=== PATIENT | female | born 1985 | race Caucasian/White ===

== ENCOUNTER 2017-07-12 07:10 | Day surgery (SDC) | payer BC ==
[~2017-07-12 07:10] MED LIST: Lactated Ringers 1,000 ML IV SCH; Sodium Chloride 0.9% 10 ML Syringe FLUSH PRN; Sodium Chloride 0.9% 2.5 ML Syringe FLUSH PRN; ceFAZolin 2 GM in Premix Bag 1 BAG IV ONE
[2017-07-12] MEDS ORDERED: Ondansetron 4 MG/2 ML SDV ONE (07:25)
[2017-07-12] MEDS ORDERED: Propofol 200 MG/20 ML SDV ONE (07:25)
[2017-07-12] MEDS ORDERED: diphenhydrAMINE 50 MG/ML SDV ONE (07:25)
[2017-07-12] MEDS ORDERED: Midazolam 1 MG/ML 2 ML SDV ONE (07:25)
[2017-07-12] MEDS ORDERED: Succinylcholine/Normal Saline 200 MG/10 ML Syringe ONE (07:25)
[2017-07-12] MEDS ORDERED: Dexamethasone 4 MG/ML 5 ML MDV ONE (07:25)
[2017-07-12] MEDS ORDERED: Rocuronium 10 MG/ML 10 ML Syringe ONE (07:25)
[2017-07-12] MEDS ORDERED: Fluorescein 5 ML Vial ONE (07:25)
[2017-07-12] MEDS ORDERED: fentaNYL 250 MCG/5 ML SDV ONE (07:26)
[2017-07-12] MEDS ORDERED: HYDROmorphone 2 MG/ML SDV ONE (07:26)
[2017-07-12] MEDS ORDERED: Furosemide 40 MG/4 ML VIAL ONE (07:28)
[2017-07-12] MEDS ORDERED: Scopolamine 1.5 MG Transdermal Patch TRDERM PRN (07:38)
--- NOTE | 2017-07-12 07:41 | PCM.PREANE ---
Preanesthetic Assessment - Anesthesia/Transfusion/Family Hx Anesthesia History: Prior Anesthesia Without Reaction Family History of Anesthesia Reaction: No Transfusion History: No Prior Transfusion(s) Intubation History: Unknown - Review of Systems General: No Symptoms Pulmonary: No Symptoms Cardiovascular: No Symptoms Gastrointestinal: No Symptoms Neurological: No Symptoms Other: Reports: None - Physical Assessment Height: 1.68 m Weight: 128.82 kg ASA Class: 2 Mental Status: Alert & Oriented x3 Airway Class: Mallampati = 2 Dentition: Reports: Normal Dentition, Broken Tooth/Teeth (root canal upper left tooth x1) Thyro-Mental Finger Breadths: 3 Mouth Opening Finger Breadths: 3 ROM/Head Extension: Full Lungs: Clear to Auscultation, Normal Respiratory Effort Cardiovascular: Regular Rate, Regular Rhythm - Allergies Allergies/Adverse Reactions: Allergies Allergy/AdvReac Type Severity Reaction Status Date / Time hydromorphone [From Dilaudid] Allergy headache/N& Verified 07/12/17 07:24 V morphine Allergy headache/N& Verified 07/12/17 07:24 V MSG Allergy Mild Headache Uncoded 07/12/17 07:25 - Blood Blood Available: No - Anesthesia Plan Pre-Op Medication Ordered: None - Acknowledgements Anesthesia Type Planned: General Anesthesia Pt an Appropriate Candidate for the Planned Anesthesia: Yes Alternatives and Risks of Anesthesia Discussed w Pt/Guardian: Yes Pt/Guardian Understands and Agrees with Anesthesia Plan: Yes PreAnesthesia Questionnaire HEENT History: Reports: None Cardiovascular History: Reports: None Respiratory History: Reports: None Gastrointestinal History: Reports: None Genitourinary History: Reports: None ANTHROPOMETRIST History: Reports: Musculoskeletal History: Reports: Fracture Other Musculoskeletal History: hx fx ankle and rt leg Neurological History: Reports: Headaches, Chronic Psychiatric History: Reports: None Endocrine/Metabolic History: Reports: Obesity/BMI 30+ (BMI 45.5) Hematologic History: Reports: None Immunologic History: Reports: None Oncologic (Cancer) History: Reports: None Dermatologic History: Reports: None - Past Surgical History Head Surgeries/Procedures: Reports: None HEENT Surgical History: Reports: Adenoidectomy, Tonsillectomy Cardiovascular Surgical History: Reports: None Respiratory Surgical History: Reports: None GI Surgical History: Reports: None Female Surgical History: Reports: Cervical Conization, Endometrial Ablation, Tubal Ligation Endocrine Surgical History: Reports: None Neurological Surgical History: Reports: None Musculoskeletal Surgical History: Reports: None Oncologic Surgical History: Reports: None Dermatological Surgical History: Reports: Skin Biopsy - SUBSTANCE USE Smoking Status *Q: Current Every Day Smoker (1/2 to 3/4 per day) Tobacco Use Within Last Twelve Months: Cigarettes Recreational Drug Use History: No - HOME MEDS Home Medications: Home Meds . [No Known Home Meds] 07/07/17 [History] - CURRENT (IN HOUSE) MEDS Current Meds: Current Medications Lactated Ringer's (Ringers, Lactated) 1,000 mls @ 125 mls/hr IV ASDIRECTED ROHITH Last Admin: 07/12/17 07:25 Dose: 125 mls/hr Sodium Chloride (Saline Flush) 10 ml FLUSH ASDIRECTED PRN PRN Reason: Keep Vein Open Sodium Chloride (Saline Flush) 2.5 ml FLUSH ASDIRECTED PRN PRN Reason: Keep Vein Open Discontinued Medications Dexamethasone (Dexamethasone) Confirm Administered Dose 20 mg .ROUTE .STK-MED ONE Stop: 07/12/17 07:26 Diphenhydramine HCl (Benadryl) Confirm Administered Dose 50 mg .ROUTE .STK-MED ONE Stop: 07/12/17 07:26 Fentanyl (Sublimaze) Confirm Administered Dose 250 mcg .ROUTE .STK-MED ONE Stop: 07/12/17 07:27 Fluorescein Sodium (Ak-Fluor) Confirm Administered Dose 5 ml .ROUTE .STK-MED ONE Stop: 07/12/17 07:26 Furosemide (Lasix) Confirm Administered Dose 40 mg .ROUTE .STK-MED ONE Stop: 07/12/17 07:29 Hydromorphone HCl (Dilaudid) Confirm Administered Dose 2 mg .ROUTE .STK-MED ONE Stop: 07/12/17 07:27 Cefazolin Sodium/Dextrose 2 gm (/ Premix) 50 mls @ 100 mls/hr IV ONETIME ONE Stop: 07/12/17 05:29 Midazolam HCl (Versed 1 Mg/Ml) Confirm Administered Dose 2 mg .ROUTE .STK-MED ONE Stop: 07/12/17 07:26 Ondansetron HCl (Zofran) Confirm Administered Dose 4 mg .ROUTE .STK-MED ONE Stop: 07/12/17 07:26 Propofol (Diprivan 20 Ml) Confirm Administered Dose 200 mg .ROUTE .STK-MED ONE Stop: 07/12/17 07:26 Rocuronium [place] (Zemuron) Confirm Administered Dose 100 mg .ROUTE .STK-MED ONE Stop: 07/12/17 07:26 Succinylcholine Chloride (Succinylcholine In Ns Pf) Confirm Administered Dose 200 mg .ROUTE .STK-MED ONE Stop: 07/12/17 07:26
[2017-07-12 08:12] LABS: CHLORIDE,CL 106 mmol/L (98-107); SODIUM,NA 139 mmol/L (136-145)
[2017-07-12] MEDS ORDERED: ceFAZolin/Dextrose,Iso-Osmotic 2 GM/50 ML Duplex Bag IV ONE (08:12)
[2017-07-12] MEDS ORDERED: Glycopyrrolate 0.2 MG/ML SDV ONE (08:43)
[2017-07-12] MEDS ORDERED: fentaNYL 100 MCG/2 ML SDV ONE (09:24)
[2017-07-12] MEDS ORDERED: Ketorolac 30 MG/ML SDV ONE (09:58)
[2017-07-12] MEDS ORDERED: Acetaminophen/oxyCODONE 325-5 MG Tab PO PRN (10:26)
[2017-07-12] MEDS ORDERED: Ondansetron 4 MG/2 ML SDV IVPUSH PRN (10:26)
[2017-07-12] MEDS ORDERED: Lactated Ringers 1,000 ML IV SCH (10:30)
[2017-07-12] MEDS: Ketorolac 30 MG/ML SDV IVPUSH SCH ×4 (10:30→21:55)
[2017-07-12] MEDS: fentaNYL 100 MCG/2 ML SDV IVPUSH PRN ×2 (10:39→10:45)
--- NOTE | 2017-07-12 10:42 | PCM.OPNOTE ---
- General Post-Op/Procedure Note Date of Surgery/Procedure: 07/12/17 Operative Procedure(s): Vagianal hysterectomy. Cystoscopy Findings: Mobile 10 weeks size uterus, scarred cervix (from previous cone), no adnexal masses. Pre Op Diagnosis: Menorrhagia Post-Op Diagnosis: Same Anesthesia Technique: General ET Tube Primary Surgeon: Delmy Cedeño Vocational Nursing Instructor: Maru Rodgers Pathology: Uterus, cervix and Filse chip Fluid Replacement, Intraop: 2,700 EBL in mLs: 500 Complications: None Condition: Good
--- NOTE | 2017-07-12 11:36 | PCM.POSTAN ---
POST ANESTHESIA ASSESSMENT - MENTAL STATUS Mental Status: Alert, Oriented - RESPIRATORY Respiratory Status: Respiratory Rate WNL, Airway Patent, O2 Saturation Stable - CARDIOVASCULAR CV Status: Pulse Rate WNL, Blood Pressure Stable - GASTROINTESTINAL GI Status: No Symptoms - PAIN Pain Score: 5 - POST OP HYDRATION Hydration Status: Adequate & Stable - OBSERVATIONS Free Text/Narrative:: no anesthesia problems
[2017-07-12] MEDS ORDERED: Acetaminophen/oxyCODONE 325-5 MG Tab ONE (11:37)
[2017-07-12] MEDS ORDERED: Meperidine PF 25 MG/ML Syringe IVPUSH PRN (14:03)
--- NOTE | 2017-07-12 15:36 | PCM48HPAN ---
Post Anesthesia Note - EVALUATION WITHIN 48HRS OF ANESTHETIC Vital Signs in Normal Range: Yes Patient Participated in Evaluation: Yes Respiratory Function Stable: Yes Airway Patent: Yes Cardiovascular Function Stable: Yes Hydration Status Stable: Yes Pain Control Satisfactory: Yes Nausea and Vomiting Control Satisfactory: Yes Mental Status Recovered: Yes Resp Rate: 18
--- NOTE | 2017-07-12 17:32 | PCM.SURGPN ---
- General Info POD#: 0 Functional Status: Reports: Pain Controlled, Tolerating Diet, Ambulating, Incentive Spirometry - Review of Systems General: Denies: Fever, Fatigue, Malaise, Chills HEENT: Denies: Headaches Pulmonary: Denies: Shortness of Breath, Pleuritic Chest Pain Cardiovascular: Denies: Chest Pain, Palpitations, Dyspnea on Exertion Gastrointestinal: Denies: Abdominal Pain - Patient Data Vitals - Most Recent: Last Vital Signs Temp 36.2 C 07/12/17 16:00 Pulse 62 07/12/17 16:00 Resp 16 07/12/17 16:00 BP 132/70 07/12/17 16:00 Pulse Ox 93 L 07/12/17 16:00 Weight - Most Recent: 284 lb I&O - Last 24 Hours: Intake & Output 07/12/17 07/12/17 07/12/17 06:59 14:59 22:59 Intake Total 5600 Output Total 400 Balance 5200 Lab Results Last 24 Hrs: Laboratory Results - last 24 hr 07/12/17 07/12/17 07/12/17 Range/Units 07:30 07:30 07:30 WBC 10.71 (4.0-11.0) K/uL RBC 5.40 (4.30-5.90) M/uL Hgb 16.2 H (12.0-16.0) g/dL Hct 48.2 H (36.0-46.0) % MCV 89.3 (80.0-98.0) fL MCH 30.0 (27.0-32.0) pg MCHC 33.6 (31.0-37.0) g/dL RDW Std Deviation 42.7 (28.0-62.0) fl RDW Coeff of Domo 13 (11.0-15.0) % Plt Count 270 (150-400) K/uL MPV 11.00 (7.40-12.00) fL Nucleated RBC % 0.0 /100WBC Nucleated RBCs # 0 K/uL Sodium 139 (136-145) mmol/L Potassium 4.0 (3.5-5.1) mmol/L Chloride 106 (98-107) mmol/L Carbon Dioxide 25.7 (21.0-32.0) mmol/L BUN 12 (7.0-18.0) mg/dL Creatinine 0.7 (0.6-1.0) mg/dL Est Cr Clr Drug Dosing 108.05 mL/min Estimated GFR (MDRD) > 60.0 ml/min Glucose 94 (74-106) mg/dL Calcium 8.9 (8.5-10.1) mg/dL HCG, Qual NEGATIVE (NEG) Blood Type Antibody Screen 07/12/17 Range/Units 07:36 WBC (4.0-11.0) K/uL RBC (4.30-5.90) M/uL Hgb (12.0-16.0) g/dL Hct (36.0-46.0) % MCV (80.0-98.0) fL MCH (27.0-32.0) pg MCHC (31.0-37.0) g/dL RDW Std Deviation (28.0-62.0) fl RDW Coeff of Domo (11.0-15.0) % Plt Count (150-400) K/uL MPV (7.40-12.00) fL Nucleated RBC % /100WBC Nucleated RBCs # K/uL Sodium (136-145) mmol/L Potassium (3.5-5.1) mmol/L Chloride (98-107) mmol/L Carbon Dioxide (21.0-32.0) mmol/L BUN (7.0-18.0) mg/dL Creatinine (0.6-1.0) mg/dL Est Cr Clr Drug Dosing mL/min Estimated GFR (MDRD) ml/min Glucose (74-106) mg/dL Calcium (8.5-10.1) mg/dL HCG, Qual (NEG) Blood Type O POSITIVE Antibody Screen NEGATIVE Med Orders - Current: Current Medications Fentanyl (Sublimaze) 50 mcg IVPUSH SEECOMMENT PRN PRN Reason: Pain (moderate 4-6) Last Admin: 07/12/17 10:45 Dose: 50 mcg Lactated Ringer's (Ringers, Lactated) 1,000 mls @ 125 mls/hr IV ASDIRECTED [facility] Last Admin: 07/12/17 12:13 Dose: 125 mls/hr Ketorolac Tromethamine (Toradol) 30 mg IVPUSH Q6H [facility] Stop: 07/12/17 22:31 Last Admin: 07/12/17 16:24 Dose: 30 mg Meperidine HCl (Demerol) 25 mg IVPUSH Q4H PRN PRN Reason: severe pain Last Admin: 07/12/17 14:13 Dose: 25 mg Ondansetron HCl (Zofran) 4 mg IVPUSH Q6H PRN PRN Reason: Nausea/Vomiting Oxycodone/Acetaminophen (Percocet 325-5 Mg) 1 tab PO Q4H PRN PRN Reason: Pain (moderate 4-6) Oxycodone/Acetaminophen (Percocet 325-5 Mg) 2 tab PO Q4H PRN PRN Reason: Pain (moderate 4-6) Last Admin: 07/12/17 11:40 Dose: 2 tab Scopolamine (Transderm-Scop) 1.5 mg TRDERM Q72H PRN PRN Reason: Nausea Last Admin: 07/12/17 07:48 Dose: 1.5 mg Discontinued Medications Cefazolin Sodium/Dextrose (Ancef) Confirm Administered Dose 2 gm IV .STK-MED ONE Stop: 07/12/17 08:13 Dexamethasone (Dexamethasone) Confirm Administered Dose 20 mg .ROUTE .STK-MED ONE Stop: 07/12/17 07:26 Diphenhydramine HCl (Benadryl) Confirm Administered Dose 50 mg .ROUTE .STK-MED ONE Stop: 07/12/17 07:26 Fentanyl (Sublimaze) Confirm Administered Dose 250 mcg .ROUTE .STK-MED ONE Stop: 07/12/17 07:27 Fentanyl (Sublimaze) Confirm Administered Dose 100 mcg .ROUTE .STK-MED ONE Stop: 07/12/17 09:25 Fluorescein Sodium (Ak-Fluor) Confirm Administered Dose 5 ml .ROUTE .STK-MED ONE Stop: 07/12/17 07:26 Furosemide (Lasix) Confirm Administered Dose 40 mg .ROUTE .STK-MED ONE Stop: 07/12/17 07:29 Glycopyrrolate (Robinul) Confirm Administered Dose 0.2 mg .ROUTE .STK-MED ONE Stop: 07/12/17 08:44 Hydromorphone HCl (Dilaudid) Confirm Administered Dose 2 mg .ROUTE .STK-MED ONE Stop: 07/12/17 07:27 Cefazolin Sodium/Dextrose 2 gm (/ Premix) 50 mls @ 100 mls/hr IV ONETIME ONE Stop: 07/12/17 05:29 Last Admin: 07/12/17 07:00 Dose: Not Given Lactated Ringer's (Ringers, Lactated) 1,000 mls @ 125 mls/hr IV ASDIRECTED ROHITH Last Admin: 07/12/17 07:25 Dose: 125 mls/hr Ketorolac Tromethamine (Toradol) Confirm Administered Dose 30 mg .ROUTE .STK- MED ONE Stop: 07/12/17 09:59 Midazolam HCl (Versed 1 Mg/Ml) Confirm Administered Dose 2 mg .ROUTE .STK-MED ONE Stop: 07/12/17 07:26 Ondansetron HCl (Zofran) Confirm Administered Dose 4 mg .ROUTE .STK-MED ONE Stop: 07/12/17 07:26 Propofol (Diprivan 20 Ml) Confirm Administered Dose 200 mg .ROUTE .STK-MED ONE Stop: 07/12/17 07:26 Rocuronium Levasy (Zemuron) Confirm Administered Dose 100 mg .ROUTE .STK-MED ONE Stop: 07/12/17 07:26 Sodium Chloride (Saline Flush) 10 ml FLUSH ASDIRECTED PRN PRN Reason: Keep Vein Open Sodium Chloride (Saline Flush) 2.5 ml FLUSH ASDIRECTED PRN PRN Reason: Keep Vein Open Succinylcholine Chloride (Succinylcholine In Ns Pf) Confirm Administered Dose 200 mg .ROUTE .STK-MED ONE Stop: 07/12/17 07:26 - Exam Wound/Incisions: Other (Minimal vaginal bleeding) General: Alert, Oriented HEENT: Pupils Equal Lungs: Clear to Auscultation, Normal Respiratory Effort Cardiovascular: Regular Rate, Regular Rhythm GI/Abdominal Exam: Normal Bowel Sounds, Soft, Non-Tender Extremities: No Pedal Edema Skin: Warm Psy/Mental Status: Alert, Normal Affect, Normal Mood - Problem List & Annotations (1) Menorrhagia SNOMED Code(s): 627943396 Code(s): N92.0 - EXCESSIVE AND FREQUENT MENSTRUATION WITH REGULAR CYCLE Status: Acute Current Visit: Yes Qualifiers: Menorrahagia type: with regular cycle Qualified Code(s): N92.0 - Excessive and frequent menstruation with regular cycle (2) S/P vaginal hysterectomy SNOMED Code(s): 018769237 Code(s): Z90.710 - ACQUIRED ABSENCE OF BOTH CERVIX AND UTERUS Status: Acute Current Visit: Yes - Problem List Review Problem List Initiated/Reviewed/Updated: Yes - My Orders Last 24 Hours: Active Orders 24 hr Category Date Time Status Patient Status [ADT] Routine ADT 07/12/17 10:26 Active Antiembolic Devices [RC] PER UNIT ROUTINE Care 07/12/17 05:00 Inactive Antiembolic Devices [RC] PER UNIT ROUTINE Care 07/12/17 10:27 Active Notify Provider Intake and Out [RC] ASDIRECTED Care 07/12/17 10:26 Active Notify Provider Vital Signs [RC] ASDIRECTED Care 07/12/17 10:26 Active Oxygen Therapy [RC] ASDIRECTED Care 07/12/17 10:26 Active Procedure Prep Instructions [RC] PER UNIT ROUTINE Care 07/12/17 05:00 Inactive Procedure Site Prep Instruct [RC] PER UNIT ROUTINE Care 07/12/17 05:00 Inactive RT Incentive Spirometry [RC] Q2HWA Care 07/12/17 10:26 Active Up With Assistance [RC] PER UNIT ROUTINE Care 07/12/17 10:26 Active Up ad Elsa [RC] PER UNIT ROUTINE Care 07/12/17 10:26 Active Urinary Catheter Removal [RC] Per Unit Routine Care 07/12/17 10:26 Active Verify Patient Consent Obtain [RC] PER UNIT ROUTINE Care 07/12/17 05:00 Inactive Vital Signs [RC] PER UNIT ROUTINE Care 07/12/17 05:00 Inactive Vital Signs [RC] PER UNIT ROUTINE Care 07/12/17 10:26 Active Regular Diet [DIET] Diet 07/12/17 Lunch Active BASIC METABOLIC PANEL,BMP [CHEM] AM Lab 07/13/17 05:11 Ordered CBC WITH AUTO DIFF [HEME] AM Lab 07/13/17 05:11 Ordered Acetaminophen/oxyCODONE [Percocet 325-5 MG] Med 07/12/17 10:26 Active 1 tab PO Q4H PRN Acetaminophen/oxyCODONE [Percocet 325-5 MG] Med 07/12/17 10:26 Active 2 tab PO Q4H PRN Ketorolac [Toradol] Med 07/12/17 10:30 Active 30 mg IVPUSH Q6H Lactated Ringers [Ringers, Lactated] 1,000 ml Med 07/12/17 10:30 Active IV ASDIRECTED Meperidine [Demerol] Med 07/12/17 14:03 Active 25 mg IVPUSH Q4H PRN Ondansetron [Zofran] Med 07/12/17 10:26 Active 4 mg IVPUSH Q6H PRN Scopolamine [Transderm-Scop] Med 07/12/17 07:38 Active 1.5 mg TRDERM Q72H PRN fentaNYL [Sublimaze] Med 07/12/17 08:45 Active 50 mcg IVPUSH SEECOMMENT PRN Peripheral IV Discontinue [OM.PC] Routine Oth 07/12/17 10:26 Ordered Sequential Compression Device [OM.PC] Per Unit Routine Oth 07/12/17 10:26 Ordered Resuscitation Status Routine Resus Stat 07/12/17 10:26 Ordered Medication Orders Fentanyl (Sublimaze) 50 mcg IVPUSH SEECOMMENT PRN PRN Reason: Pain (moderate 4-6) Last Admin: 07/12/17 10:45 Dose: 50 mcg Admin: 07/12/17 10:39 Dose: 50 mcg Lactated Ringer's (Ringers, Lactated) 1,000 mls @ 125 mls/hr IV ASDIRECTED [facility] Last Admin: 07/12/17 12:13 Dose: 125 mls/hr Ketorolac Tromethamine (Toradol) 30 mg IVPUSH Q6H [facility] Stop: 07/12/17 22:31 Last Admin: 07/12/17 16:24 Dose: 30 mg Admin: 07/12/17 10:30 Dose: 30 mg Meperidine HCl (Demerol) 25 mg IVPUSH Q4H PRN PRN Reason: severe pain Last Admin: 07/12/17 14:13 Dose: 25 mg Ondansetron HCl (Zofran) 4 mg IVPUSH Q6H PRN PRN Reason: Nausea/Vomiting Oxycodone/Acetaminophen (Percocet 325-5 Mg) 1 tab PO Q4H PRN PRN Reason: Pain (moderate 4-6) Oxycodone/Acetaminophen (Percocet 325-5 Mg) 2 tab PO Q4H PRN PRN Reason: Pain (moderate 4-6) Last Admin: 07/12/17 11:40 Dose: 2 tab Scopolamine (Transderm-Scop) 1.5 mg TRDERM Q72H PRN PRN Reason: Nausea Last Admin: 07/12/17 07:48 Dose: 1.5 mg - Assessment Assessment (Free Text/Narrative):: POD#0, s/p Vaginal hysterectomy, stable and afebrile Minimal vaginal bleeding. Good urine output - Plan Plan (Free Text/Narrative):: Continue routine postop care. Continue to ambulate ad elsa Aim for discharge tomorrow.
[2017-07-12] MEDS: Acetaminophen/oxyCODONE 325-5 MG Tab PO PRN (18:53)
--- NOTE | 2017-07-12 20:34 | OR ---
SURGEON: Delmy Cedeño MD DATE OF PROCEDURE: 07/12/2017 PREOPERATIVE DIAGNOSIS: Menorrhagia. POSTOPERATIVE DIAGNOSIS: Menorrhagia. PROCEDURES: 1. Vaginal hysterectomy. 2. Cystoscopy. ASSISTANT SHIFT SUPERVISOR: Maru Rodgers M.D. ANESTHESIA: General endotracheal. IV FLUID: 2700 mL of crystalloid. ESTIMATED BLOOD LOSS: 500 mL. FINDINGS: Mobile 8 weeks size uterus, anteverted.The cervix was shortened and scarred from previous Cold knife cone procedure Normal tubes visualized bilaterally intraoperatively but the ovaries were not well visualized. No trauma to the bladder mucosa with bilateral patent ureters during the cystoscopy. COMPLICATIONS: None. DISPOSITION: Stable to the recovery room. BRIEF HISTORY: The patient is a 31-year-old, who presented with menorrhagia following a hydrothermal endometrial ablation, which was performed by her previous COURT ASSISTANT doctor. 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 She came in requesting that she would like to proceed with hysterectomy as a definitive management for her menorrhagia. She had completed her family and having had a bilateral tubal ligation, was adamant that she would like to proceed with hysterectomy. I had requested and reviewed all her past records from her prior COURT ASSISTANT doctor, and we had extensively discussed the risk of the major surgery, hysterectomy, and alternatives to the procedure. The patient opted to proceed and appropriate consent was obtained. DESCRIPTION OF THE PROCEDURE: The patient was taken to the operating room where induction of general anesthesia was performed without difficulty. After adequate level of general endotracheal anesthesia, she was placed in dorsal lithotomy position. The abdomen, perineum, and vagina were prepped in a normal sterile fashion for the surgery. A Hardin catheter was placed. SCDs were in place. She received 2 g of Ancef. Appropriate time-out was held. A weighted speculum was placed into the vagina posteriorly, but this was found not to be inadequate due to the depth of the vagina/pelvis. It was switched out to Soler Auvard speculum. Lateral wall retractors were used to retract the vagina anteriorly and laterally exposing the cervix. The cervix was grasped with a Ze tenaculum and was then circumscribed using electrocautery, and the bladder was then dissected off cervix anteriorly by both blunt and sharp dissection using the Metzenbaum scissors. The cervix was also dissected off posteriorly and the posterior cul-de-sac was entered sharply without difficulty and the speculum was placed into the peritoneum cavity. Anterior cul-de-sac was also entered sharply and a right angle retractor was placed into the peritoneal cavity retracting the bladder anteriorly and cephalad. At this point, a Kiley clamp was placed over the uterosacral ligaments on either side, these were then transected and suture ligated with Kiley suture of 2-0 Polysorb. The cardinal ligament complex was then crossclamped on both sides, transected and suture ligated in similar fashion with a 2-0 Polysorb suture. The uterine arteries and the broad ligament were then serially clamped with Kiley clamps, transected, and suture ligated with 2-0 Polysorb on either side. After hemostasis was noted on these pedicle, both cornua were then clamped with Kiley clamps, transected, and suture ligated with 2-0 Polysorb sutures. Thereafter, the uterus was delivered. The pedicles were then examined and noted on the patient's left side along the posterior peritoneal edge was a bleeding vessel close to the uterosacral ligament complex. This was then clamped with a Kiley, and the area was then ligated with a 2-0 Vicryl suture, hemostasis was achieved. The pedicles were then carefully inspected again and were found to be hemostatic. The uterosacral ligaments on both sides were then transfixed to the ipsilateral apices. The vaginal cuff was closed with 0 Vicryl suture in a running locked fashion.The patient was given fluorescein and Furosemide and cystoscopy was performed. There was copious flow of fluorescent yellow urine from both ureteral orifices. The vaginal vault was then re-examined and bleeding noted on the left side. A [id number] suture was placed with a 2-0 Vicryl suture, achieving hemostasis. The patient tolerated the procedure well. Sponge, needle, and instrument counts were reported as correct. The patient was transferred to the recovery room in stable condition. AKOSUA / CHETNA /[id number] BENJA
[2017-07-13] MEDS: Acetaminophen/oxyCODONE 325-5 MG Tab PO PRN ×2 (00:36→05:46)
[2017-07-13 06:00] LABS: CHLORIDE,CL 105 mmol/L (98-107); SODIUM,NA 139 mmol/L (136-145)
--- NOTE | 2017-07-13 09:15 | PCM.SURGPN ---
- General Info Date of Service: 07/13/17 POD#: 1 Functional Status: Reports: Pain Controlled, Tolerating Diet, Ambulating, Urinating - Review of Systems General: Denies: Fever, Malaise, Chills HEENT: Denies: Headaches Pulmonary: Denies: Shortness of Breath, Pleuritic Chest Pain Cardiovascular: Denies: Chest Pain, Palpitations, Dyspnea on Exertion Gastrointestinal: Denies: Abdominal Pain Genitourinary: Denies: Dysuria, Flank Pain Musculoskeletal: Reports: No Symptoms Skin: Reports: No Symptoms Neurological: Reports: No Symptoms Psychiatric: Reports: No Symptoms Systems Review Comment:: Reports scant vaginal bleeding - Patient Data Vitals - Most Recent: Last Vital Signs Temp 36.1 C 07/13/17 08:27 Pulse 59 L 07/13/17 08:27 Resp 2 L 07/13/17 08:27 BP 121/67 07/13/17 08:27 Pulse Ox 93 L 07/13/17 08:27 Weight - Most Recent: 284 lb I&O - Last 24 Hours: Intake & Output 07/12/17 07/13/17 07/13/17 22:59 06:59 14:59 Intake Total 1200 Output Total 2400 Balance -1200 Lab Results Last 24 Hrs: Laboratory Results - last 24 hr 07/13/17 07/13/17 Range/Units 05:02 05:02 WBC 18.94 H (4.0-11.0) K/uL RBC 3.98 L (4.30-5.90) M/uL Hgb 11.8 L (12.0-16.0) g/dL Hct 36.1 (36.0-46.0) % MCV 90.7 (80.0-98.0) fL MCH 29.6 (27.0-32.0) pg MCHC 32.7 (31.0-37.0) g/dL RDW Std Deviation 43.8 (28.0-62.0) fl RDW Coeff of Domo 13 (11.0-15.0) % Plt Count 261 (150-400) K/uL MPV 11.30 (7.40-12.00) fL Neut % (Auto) 73.9 (48.0-80.0) % Lymph % (Auto) 17.8 (16.0-40.0) % Steele % (Auto) 8.1 (0.0-15.0) % Eos % (Auto) 0.1 (0.0-7.0) % Baso % (Auto) 0.1 (0.0-1.5) % Neut # (Auto) 14.0 H (1.4-5.7) K/uL Lymph # (Auto) 3.4 H (0.6-2.4) K/uL Steele # (Auto) 1.5 H (0.0-0.8) K/uL Eos # (Auto) 0.0 (0.0-0.7) K/uL Baso # (Auto) 0.0 (0.0-0.1) K/uL Nucleated RBC % 0.0 /100WBC Nucleated RBCs # 0 K/uL Sodium 139 (136-145) mmol/L Potassium 4.7 (3.5-5.1) mmol/L Chloride 105 (98-107) mmol/L Carbon Dioxide 27.0 (21.0-32.0) mmol/L BUN 10 (7.0-18.0) mg/dL Creatinine 0.8 (0.6-1.0) mg/dL Est Cr Clr Drug Dosing 94.55 mL/min Estimated GFR (MDRD) > 60.0 ml/min Glucose 111 H (74-106) mg/dL Calcium 8.4 L (8.5-10.1) mg/dL Med Orders - Current: Current Medications Fentanyl (Sublimaze) 50 mcg IVPUSH SEECOMMENT PRN PRN Reason: Pain (moderate 4-6) Last Admin: 07/12/17 10:45 Dose: 50 mcg Lactated Ringer's (Ringers, Lactated) 1,000 mls @ 125 mls/hr IV ASDIRECTED [facility] Last Admin: 07/12/17 12:13 Dose: 125 mls/hr Meperidine HCl (Demerol) 25 mg IVPUSH Q4H PRN PRN Reason: severe pain Last Admin: 07/12/17 14:13 Dose: 25 mg Ondansetron HCl (Zofran) 4 mg IVPUSH Q6H PRN PRN Reason: Nausea/Vomiting Oxycodone/Acetaminophen (Percocet 325-5 Mg) 1 tab PO Q4H PRN PRN Reason: Pain (moderate 4-6) Last Admin: 07/13/17 05:46 Dose: 1 tab Oxycodone/Acetaminophen (Percocet 325-5 Mg) 2 tab PO Q4H PRN PRN Reason: Pain (moderate 4-6) Last Admin: 07/12/17 11:40 Dose: 2 tab Scopolamine (Transderm-Scop) 1.5 mg TRDERM Q72H PRN PRN Reason: Nausea Last Admin: 07/12/17 07:48 Dose: 1.5 mg Discontinued Medications Cefazolin Sodium/Dextrose (Ancef) Confirm Administered Dose 2 gm IV .STK-MED ONE Stop: 07/12/17 08:13 Dexamethasone (Dexamethasone) Confirm Administered Dose 20 mg .ROUTE .STK-MED ONE Stop: 07/12/17 07:26 Diphenhydramine HCl (Benadryl) Confirm Administered Dose 50 mg .ROUTE .STK-MED ONE Stop: 07/12/17 07:26 Fentanyl (Sublimaze) Confirm Administered Dose 250 mcg .ROUTE .STK-MED ONE Stop: 07/12/17 07:27 Fentanyl (Sublimaze) Confirm Administered Dose 100 mcg .ROUTE .STK-MED ONE Stop: 07/12/17 09:25 Fluorescein Sodium (Ak-Fluor) Confirm Administered Dose 5 ml .ROUTE .STK-MED ONE Stop: 07/12/17 07:26 Furosemide (Lasix) Confirm Administered Dose 40 mg .ROUTE .STK-MED ONE Stop: 07/12/17 07:29 Glycopyrrolate (Robinul) Confirm Administered Dose 0.2 mg .ROUTE .STK-MED ONE Stop: 07/12/17 08:44 Hydromorphone HCl (Dilaudid) Confirm Administered Dose 2 mg .ROUTE .STK-MED ONE Stop: 07/12/17 07:27 Cefazolin Sodium/Dextrose 2 gm (/ Premix) 50 mls @ 100 mls/hr IV ONETIME ONE Stop: 07/12/17 05:29 Last Admin: 07/12/17 07:00 Dose: Not Given Lactated Ringer's (Ringers, Lactated) 1,000 mls @ 125 mls/hr IV ASDIRECTED [facility] Last Admin: 07/12/17 07:25 Dose: 125 mls/hr Ketorolac Tromethamine (Toradol) Confirm Administered Dose 30 mg .ROUTE .STK- MED ONE Stop: 07/12/17 09:59 Ketorolac Tromethamine (Toradol) 30 mg IVPUSH Q6H ROHITH Stop: 07/12/17 22:31 Last Admin: 07/12/17 21:55 Dose: 30 mg Midazolam HCl (Versed 1 Mg/Ml) Confirm Administered Dose 2 mg .ROUTE .STK-MED ONE Stop: 07/12/17 07:26 Ondansetron HCl (Zofran) Confirm Administered Dose 4 mg .ROUTE .STK-MED ONE Stop: 07/12/17 07:26 Oxycodone/Acetaminophen (Percocet 325-5 Mg) Confirm Administered Dose 2 tab .ROUTE .STK-MED ONE Stop: 07/12/17 11:38 Last Admin: 07/13/17 07:24 Dose: Not Given Propofol (Diprivan 20 Ml) Confirm Administered Dose 200 mg .ROUTE .STK-MED ONE Stop: 07/12/17 07:26 Rocuronium [place] (Zemuron) Confirm Administered Dose 100 mg .ROUTE .STK-MED ONE Stop: 07/12/17 07:26 Sodium Chloride (Saline Flush) 10 ml FLUSH ASDIRECTED PRN PRN Reason: Keep Vein Open Sodium Chloride (Saline Flush) 2.5 ml FLUSH ASDIRECTED PRN PRN Reason: Keep Vein Open Succinylcholine Chloride (Succinylcholine In Ns Pf) Confirm Administered Dose 200 mg .ROUTE .STK-MED ONE Stop: 07/12/17 07:26 - Exam General: Alert, Oriented HEENT: Pupils Equal Neck: Supple Lungs: Clear to Auscultation, Normal Respiratory Effort Cardiovascular: Regular Rate, Regular Rhythm GI/Abdominal Exam: Normal Bowel Sounds, Soft, Non-Tender Extremities: No Pedal Edema Skin: Warm Psy/Mental Status: Alert, Normal Affect, Normal Mood - Problem List & Annotations (1) Menorrhagia SNOMED Code(s): 134193105 Code(s): N92.0 - EXCESSIVE AND FREQUENT MENSTRUATION WITH REGULAR CYCLE Status: Acute Current Visit: Yes Qualifiers: Menorrahagia type: with regular cycle Qualified Code(s): N92.0 - Excessive and frequent menstruation with regular cycle (2) S/P vaginal hysterectomy SNOMED Code(s): 849308225 Code(s): Z90.710 - ACQUIRED ABSENCE OF BOTH CERVIX AND UTERUS Status: Acute Current Visit: Yes - Problem List Review Problem List Initiated/Reviewed/Updated: Yes - My Orders Last 24 Hours: Active Orders 24 hr Category Date Time Status Patient Status [ADT] Routine ADT 07/12/17 10:26 Active Antiembolic Devices [RC] PER UNIT ROUTINE Care 07/12/17 10:27 Active Notify Provider Intake and Out [RC] ASDIRECTED Care 07/12/17 10:26 Active Notify Provider Vital Signs [RC] ASDIRECTED Care 07/12/17 10:26 Active Oxygen Therapy [RC] ASDIRECTED Care 07/12/17 10:26 Active RT Incentive Spirometry [RC] Q2HWA Care 07/12/17 10:26 Active Up With Assistance [RC] PER UNIT ROUTINE Care 07/12/17 10:26 Active Up ad Elsa [RC] PER UNIT ROUTINE Care 07/12/17 10:26 Active Vital Signs [RC] PER UNIT ROUTINE Care 07/12/17 10:26 Active Regular Diet [DIET] Diet 07/12/17 Lunch Active Acetaminophen/oxyCODONE [Percocet 325-5 MG] Med 07/12/17 10:26 Active 1 tab PO Q4H PRN Acetaminophen/oxyCODONE [Percocet 325-5 MG] Med 07/12/17 10:26 Active 2 tab PO Q4H PRN Lactated Ringers [Ringers, Lactated] 1,000 ml Med 07/12/17 10:30 Active IV ASDIRECTED Meperidine [Demerol] Med 07/12/17 14:03 Active 25 mg IVPUSH Q4H PRN Ondansetron [Zofran] Med 07/12/17 10:26 Active 4 mg IVPUSH Q6H PRN fentaNYL [Sublimaze] Med 07/12/17 08:45 Active 50 mcg IVPUSH SEECOMMENT PRN Peripheral IV Discontinue [OM.PC] Routine Oth 07/12/17 10:26 Ordered Sequential Compression Device [OM.PC] Per Unit Routine Oth 07/12/17 10:26 Ordered Resuscitation Status Routine Resus Stat 07/12/17 10:26 Ordered Medication Orders Fentanyl (Sublimaze) 50 mcg IVPUSH SEECOMMENT PRN PRN Reason: Pain (moderate 4-6) Last Admin: 07/12/17 10:45 Dose: 50 mcg Admin: 07/12/17 10:39 Dose: 50 mcg Lactated Ringer's (Ringers, Lactated) 1,000 mls @ 125 mls/hr IV ASDIRECTED [facility] Last Admin: 07/12/17 12:13 Dose: 125 mls/hr Meperidine HCl (Demerol) 25 mg IVPUSH Q4H PRN PRN Reason: severe pain Last Admin: 07/12/17 14:13 Dose: 25 mg Ondansetron HCl (Zofran) 4 mg IVPUSH Q6H PRN PRN Reason: Nausea/Vomiting Oxycodone/Acetaminophen (Percocet 325-5 Mg) 1 tab PO Q4H PRN PRN Reason: Pain (moderate 4-6) Last Admin: 07/13/17 05:46 Dose: 1 tab Admin: 07/13/17 00:36 Dose: 1 tab Admin: 07/12/17 18:53 Dose: 1 tab Oxycodone/Acetaminophen (Percocet 325-5 Mg) 2 tab PO Q4H PRN PRN Reason: Pain (moderate 4-6) Last Admin: 07/12/17 11:40 Dose: 2 tab Scopolamine (Transderm-Scop) 1.5 mg TRDERM Q72H PRN PRN Reason: Nausea Last Admin: 07/12/17 07:48 Dose: 1.5 mg - Assessment Assessment (Free Text/Narrative):: POD #1, s/p vaginal hysterectomy. Doing very well. No concerns. - Plan Plan (Free Text/Narrative):: May be discharged today Discharge instructions reviewed. nothing in the vagina for 6 weeks Bleeding and infection precautions reviewed Reviewed lifting restrictions of 20lbs Follow up in the clinic in 2 and 6 weeks
== END 2017-07-13 09:45 | disposition home or self-care (01) ==
LOC: MW.SDS 07:10 → MW.MS 10:26 → MW.SDS 07-13 09:45
PROVIDERS: ATTEND Obstetrics & Gynecology
DX: N92.0 Excessive and frequent menstruation with regular cycle (principal); Z88.8 Allergy status to other drugs, medicaments and biological substances; Z98.51 Tubal ligation status; F17.210 Nicotine dependence, cigarettes, uncomplicated; Z87.410 Personal history of cervical dysplasia
CPT/HCPCS: 36415; 58262; 80048; 84703; 85025; 85027; 86850; 86900; 86901; A9270; J0690; J1100; J1200; J1885; J1940; J2175; J2250; J2405; J3010; J7120; 00952; 88307; J1170; J2704

== ENCOUNTER 2020-05-04 12:50 | Emergency (ER) | payer MEDICAID ==
[2020-05-04] MEDS ORDERED: Tetracaine HCl/PF 0.5% 4 ML Bottle ONE (13:28)
[2020-05-04] MEDS ORDERED: Tetracaine HCl/PF 0.5% 4 ML Bottle EYEBOTH ONE (14:11)
--- NOTE | 2020-05-04 14:25 | EDM.PDOC ---
ED HPI GENERAL MEDICAL PROBLEM - General Chief Complaint: Eye Problems Stated Complaint: PT STATED , SHE CAN'T SEE Time Seen by Provider: 05/04/20 12:57 - History of Present Illness INITIAL COMMENTS - FREE TEXT/NARRATIVE: CHIEF COMPLAINT(S): "I cannot see." HISTORY OF PRESENT ILLNESS: This is a 34-year-old woman without any past medical history who comes to the emergency department with a chief complaint of "I cannot see." The patient states that approximately 2 weeks ago she started to experience vision blurriness and over the last 2 weeks it has worsened. She states that she can no longer see out of both eyes. She states that it is blurry and she can see objects but she cannot tell what they are. She states that she is never had this before. She states that she does have a headache which is located in the back of her head which started around the same time. She denies any nausea, vomiting, trouble walking, trouble speaking, or trouble swallowing. She states that she does not wear corrective lenses. She denies any tinnitus, vertigo, ear pain, or floaters. She denies any personal history or family history of multiple sclerosis, glaucoma, or other autoimmune diseases. She states that she saw her primary care physician approximately 2 days ago for which they did a CT which she was told was normal and told to follow-up with ophthalmology. She states that however her vision has significantly worsened so she decided to come to the emergency department. She states that she does have some mild pain behind her eyes but denies any pain with extraocular movements.. REVIEW OF SYSTEMS: Constitutional: Denies fever, chills. Eyes: Positive for bilateral eye pain and vision loss Ears, Nose, Mouth, & Throat: Denies earache tenderness, sore throat Cardiovascular: Denies chest pain Respiratory: Denies shortness of breath Gastrointestinal: Denies Nausea, vomiting, diarrhea, hematochezia. Genitourinary: Denies hematuria Skin:Denies a rash Neurological: Positive for headache. Denies diplopia, numbness, tingling, weakness Psychiatric: Denies depression PAST MEDICAL HISTORY: As per history of present illness and as reviewed below otherwise noncontributory. SURGICAL HISTORY: As per history of present illness and as reviewed below otherwise noncontributory. SOCIAL HISTORY: As per history of present illness and as reviewed below otherwise noncontributory. FAMILY HISTORY: As per history of present illness and as reviewed below otherwise noncontributory. EXAMINATION OF ORGAN SYSTEMS/BODY AREAS: Constitutional: Blood pressure was 152/80, heart rate 63, respiratory rate 16 with an oxygen saturation 97% on room air. Temperature 36.0 General: Overall well-appearing woman who is in no acute distress Psychiatric: Appropriate mood and affect. Eyes: No scleral icterus or conjunctival erythema there is no injected conjunctiva. Pupils were 4 mm and reactive bilaterally. There is no obvious a Farrand pupillary defect. Visual acuity was assessed and found to be worse than 20/200 in both eyes. There was no obvious venous engorgement or obvious papilledema on funduscopic examination however limited secondary to no dilation on examination. Intraocular pressure in bilateral eyes ranged from 20-23. The patient does have color changes and the patient states that blue looks black and red looks pink. Visual zee were intact in the left eye however there is decreased visual zee and the patient's right eye from the horizon inferior. There was no hyphema. Extraocular movements were intact without any obvious abnormality. ENMT: Moist mucous membranes. No pharyngeal erythema Cardiovascular: Regular, rate, and rhythm. No gallops, murmurs, or rubs. Bilateral upper extremity pulses symmetric and intact. No peripheral edema. No JVD. Respiratory: Lungs clear to auscultation bilaterally. No wheezes, rales, or rhonchi. Gastrointestinal: Soft, non-tender, non-distended. Normoactive bowel sounds Genitourinary: No suprapubic tenderness Musculoskeletal: Normal range of motion. Skin: No lesions or abrasions. Neurological: Alert, GCS 15 strength and sensation grossly intact in upper and lower extremities bilaterally. There were no obvious cerebellar signs MEDICAL DECISION MAKING AND COURSE IN THE ED WITH INTERPRETATION/REVIEW OF DIAGNOSTIC STUDIES: This is a 34-year-old woman without any significant past medical history who comes to the emergency department with mildly increased intraocular pressure, severe visual acuity deficits and a right inferior visual field defect. At this time we do not have ophthalmology or neurology and no MRI capabilities today. Therefore I did discuss with patient that I would like to contact [facility] in [place] for transfer. She was amenable to this plan. I did perform a bedside ocular ultrasound which did not reveal any evidence of obvious retinal detachment or vitreous hemorrhage. The optic nerve was measured at 3.8 mm bilaterally. I did review the patient's prior CT which was found to be normal. At this time differential includes optic neuritis, pseudotumor cerebri versus tumor. I contacted [facility] in [place] and spoke with Dr. Salazar who accepted the patients. I also spoke with Dr. Costa who is an inventory transcriber and recommended transfer for MRI and possibly steroids given the severity of her vision loss and visual field changes. We did send off a coronavirus swab however I did feel that the patient's transfer is necessary sooner rather than later. The patient's /boyfriend will transfer the patient to [facility] in [place] via private vehicle. She was instructed to go straight to the emergency department DISPOSITION: The patient was transferred to [facility] via private vehicle CONDITION: Serious PROCEDURES: Ocular ultrasound FINAL IMPRESSION(S)/DIAGNOSES: 1. Subacute vision changes possibly secondary to tumor versus pseudotumor cerebri versus optic neuritis. Chris Chanel M.D. - Related Data Allergies Allergy/AdvReac Type Severity Reaction Status Date / Time hydromorphone [From Dilaudid] Allergy headache/N& Verified 07/12/17 07:24 V morphine Allergy headache/N& Verified 07/12/17 07:24 V MSG Allergy Mild Headache Uncoded 07/12/17 07:25 Home Meds: Home Meds . [No Known Home Meds] 07/07/17 [History] Past Medical History HEENT History: Reports: None Cardiovascular History: Reports: None Respiratory History: Reports: None Gastrointestinal History: Reports: None Genitourinary History: Reports: None [employer] History: Reports: Musculoskeletal History: Reports: Fracture Other Musculoskeletal History: hx fx ankle and rt leg Neurological History: Reports: Headaches, Chronic Psychiatric History: Reports: None Endocrine/Metabolic History: Reports: Obesity/BMI 30+ (BMI 45.5) Hematologic History: Reports: None Immunologic History: Reports: None Oncologic (Cancer) History: Reports: None Dermatologic History: Reports: None - Past Surgical History Head Surgeries/Procedures: Reports: None HEENT Surgical History: Reports: Adenoidectomy, Tonsillectomy Cardiovascular Surgical History: Reports: None Respiratory Surgical History: Reports: None GI Surgical History: Reports: None Female Surgical History: Reports: Cervical Conization, Endometrial Ablation, Tubal Ligation Endocrine Surgical History: Reports: None Neurological Surgical History: Reports: None Musculoskeletal Surgical History: Reports: None Oncologic Surgical History: Reports: None Dermatological Surgical History: Reports: Skin Biopsy ED ROS GENERAL - Review of Systems Review Of Systems: See Below ED EXAM GENERAL W FULL EYE - Physical Exam Exam: See Below Course - Vital Signs Last Recorded V/S: Last Vital Signs Temp 36.0 C L 05/04/20 13:05 Pulse 63 05/04/20 13:05 Resp 16 05/04/20 13:05 BP 152/80 H 05/04/20 13:05 Pulse Ox 97 05/04/20 13:05 - Orders/Labs/Meds Orders: Active Orders 24 hr Category Date Time Status CORONAVIRUS COVID-19 ETHEL [MOLEC] Stat Lab 05/04/20 14:12 Received Labs: Laboratory Tests 05/04/20 Range/Units 13:12 POC Glucose 97 (60-110) mg/dL Meds: Medications Discontinued Medications Generic Name Dose Route Start Last Admin Trade Name Freq PRN Reason Stop Dose Admin Tetracaine HCl Confirm 05/04/20 13:28 05/04/20 14:13 Tetracaine 0.5% Steri-Unit Hilary Administered 05/04/20 13:29 Not Given Dose 4 ml .ROUTE .STK-MED ONE Tetracaine HCl 1 ml 05/04/20 14:11 05/04/20 14:13 Tetracaine 0.5% Steri-Unit Hilary EYEBOTH 05/04/20 14:12 1 ml ASDIRECTED ONE Administration Departure - Departure Time of Disposition: 14:24 Disposition: DC/Tfer to Acute Hospital 02 Condition: Serious Clinical Impression: Visual changes - Discharge Information *PRESCRIPTION DRUG MONITORING PROGRAM REVIEWED*: No *COPY OF PRESCRIPTION DRUG MONITORING REPORT IN PATIENT BOGDAN: No Instructions: Visual Disturbances Referrals: Meka Ramírez PA [Primary Care Provider] - Forms: ED Department Discharge Additional Instructions: Your evaluated today on an emergent basis. Given the degree of your vision loss I did contact inventory transcriber Dr. Costa and ER Physician Dr. Salazar. They recommend immediate transfer to [facility] emergency department in [place]. You have chosen to be transferred via private vehicle. Please present to the emergency department and let them know that Dr. Salazar accepted you as a transfer. Sepsis Event Note (ED) - Evaluation Sepsis Screening Result: No Definite Risk - Focused Exam Vital Signs: Vital Signs Temp Pulse Resp BP Pulse Ox 05/04/20 13:05 36.0 C L 63 16 152/80 H 97 - My Orders Last 24 Hours: My Active Orders 05/04/20 14:12 CORONAVIRUS COVID-19 ETHEL [MOLEC] Stat - Assessment/Plan Last 24 Hours: My Active Orders 05/04/20 14:12 CORONAVIRUS COVID-19 ETHEL [MOLEC] Stat
== END 2020-05-04 15:00 ==
LOC: MW.ED 12:50
DX: H53.9 Unspecified visual disturbance (principal); E66.9 Obesity, unspecified; Z88.5 Allergy status to narcotic agent; Z88.8 Allergy status to other drugs, medicaments and biological substances; Z20.828 Contact with and (suspected) exposure to other viral communicable diseases
CPT/HCPCS: 82962; 99283; 99284; U0002

== ENCOUNTER 2020-05-29 07:17 | Emergency (ER) | payer MEDICAID ==
[2020-05-29] MEDS ORDERED: Ketorolac 15 MG/ML SDV IVPUSH ONE (07:36)
[2020-05-29] MEDS ORDERED: Lactated Ringers 1,000 ML IV ONE (07:36)
[2020-05-29] MEDS ORDERED: Metoclopramide 10 MG/2 ML SDV IVPUSH ONE (07:36)
[2020-05-29] MEDS ORDERED: diphenhydrAMINE 50 MG/ML SDV IVPUSH ONE (07:37)
--- NOTE | 2020-05-29 08:11 | CT ---
INDICATION: Headache TECHNIQUE: CT head without contrast. COMPARISON: 05/02/2020 FINDINGS: CSF spaces: Within normal limits for age. Brain parenchyma and extra-axial spaces: The castañeda-white differentiation is normal. No sign of mass, hemorrhage, or midline shift. No extra-axial fluid collection. Skull base and calvarium: The visualized paranasal sinuses and mastoid air cells demonstrate no acute or significant findings. The visualized orbits are grossly unremarkable. No skull fractures. IMPRESSION: Unremarkable noncontrast head CT. Please note that all CT scans at this facility use dose modulation, iterative reconstruction, and/or weight-based dosing when appropriate to reduce radiation dose to as low as reasonably achievable. Dictated by Yadiel Montoya MD @ May 29 2020 8:08AM Signed by Dr. Yadiel Montoya @ May 29 2020 8:11AM
--- NOTE | 2020-05-29 08:23 | EDM.PDOC ---
ED HPI GENERAL MEDICAL PROBLEM - General Chief Complaint: Headache Stated Complaint: MIGRAINE Time Seen by Provider: 05/29/20 07:59 Source of Information: Reports: Patient History Limitations: Reports: No Limitations - History of Present Illness INITIAL COMMENTS - FREE TEXT/NARRATIVE: 34-year-old female with history of migraine headache presents with headache since yesterday afternoon. Headache is identical to her previous migraine headaches which she has a long history of. Described as frontal throbbing, moderate, radiates to the occiput, associated with nausea, vomiting. She denies fever, chills, neck pain or neck stiffness. She has been taking Aleve with mild relief. She was recently seen on 05/04/20 for blurry vision and was transferred to [facility] for MRI. She was then transferred to [place] for further work- up with neuro ophthalmology, she claims MS and idiopathic hypertension were ruled out. She does not know what her final diagnosis is. She did not bring paperwork with her. She had a follow-up appointment 2 days ago with a neuro- separating machine operator at [place] (Dr. Ramey), who states her optic nerve swelling improved significantly. Her next appointment is on . ROS: A 10-point review of systems, other than pertinent positives and negatives as stated per HPI, is otherwise negative Past medical history: No additional pertinent history Past Surgical history: No additional pertinent history Social history: No additional pertinent history Family history: No additional pertinent history PHYSICAL EXAM General: AOx4, GCS = 15, mild distress HEENT: dry mucous membrane, visual acuity 20/20 OD/OS/OU, EOMI, no pain with ocular range of motion. Neck: supple, no meningismus, no Kernig or Brudzinski Cardiac: S1S2 RRR Respiratory: CTAB, no crackles or rales, no wheezing Abdomen: Soft, nontender, no rebound or guarding, nondistended, no pulsatile mass. Back: nontender Musculoskeletal: NVI distally, no deformity Neuro: No focal deficits, CN 2 - 12 WNL. 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: Musculoskeletal History: Reports: Fracture Other Musculoskeletal History: hx fx ankle and rt leg Neurological History: Reports: Headaches, Chronic, Migraines Psychiatric History: Reports: None Endocrine/Metabolic History: Reports: Obesity/BMI 30+ Hematologic History: Reports: None Immunologic History: Reports: None Oncologic (Cancer) History: Reports: None Dermatologic History: Reports: None - Infectious Disease History Infectious Disease History: Reports: Chicken Pox - Past Surgical History Head Surgeries/Procedures: Reports: None HEENT Surgical History: Reports: Adenoidectomy, Tonsillectomy Cardiovascular Surgical History: Reports: None Respiratory Surgical History: Reports: None GI Surgical History: Reports: None Female Surgical History: Reports: Cervical Conization, Endometrial Ablation, Hysterectomy, Tubal Ligation Endocrine Surgical History: Reports: None Neurological Surgical History: Reports: None Musculoskeletal Surgical History: Reports: None Oncologic Surgical History: Reports: None Dermatological Surgical History: Reports: Skin Biopsy Social & Family History - Family History Family Medical History: No Pertinent Family History - Tobacco Use Packs/Tins Daily: 1 - Caffeine Use Caffeine Use: Reports: None - Recreational Drug Use Recreational Drug Use: No ED ROS GENERAL - Review of Systems Review Of Systems: See Below (see dictation) ED EXAM, GENERAL - Physical Exam Exam: See Below (see dictation) Course - Vital Signs Last Recorded V/S: Last Vital Signs Temp 97 F 05/29/20 07:24 Pulse 58 L 05/29/20 07:24 Resp 18 05/29/20 07:24 BP 133/61 05/29/20 07:24 Pulse Ox 96 05/29/20 07:24 - Orders/Labs/Meds Orders: Active Orders 24 hr Category Date Time Status Visual Acuity [Vision Test] [RC] ASDIRECTED Care 05/29/20 07:35 Active COMPREHENSIVE METABOLIC PN,CMP [CHEM] Stat Lab 05/29/20 07:40 Received ESR [SEDIMENTATION RATE AUTO] [HEME] Stat Lab 05/29/20 07:40 Received INR,PT,PROTHROMBIN TIME [COAG] Stat Lab 05/29/20 07:40 Received Lactated Ringers [Ringers, Lactated] 1,000 ml Med 05/29/20 07:36 Active IV .BOLUS Medication Orders Lactated Ringer's (Ringers, Lactated) 1,000 mls @ 999 mls/hr IV .BOLUS ONE Stop: 05/29/20 08:36 Last Admin: 05/29/20 07:48 Dose: 999 mls/hr Documented by: URI Labs: Laboratory Tests 05/29/20 Range/Units 07:40 WBC 18.50 H (4.0-11.0) K/uL RBC 5.05 (4.30-5.90) M/uL Hgb 15.6 (12.0-16.0) g/dL Hct 47.5 H (36.0-46.0) % MCV 94.1 (80.0-98.0) fL MCH 30.9 (27.0-32.0) pg MCHC 32.8 (31.0-37.0) g/dL RDW Std Deviation 46.5 (28.0-62.0) fl RDW Coeff of Domo 14 (11.0-15.0) % Plt Count 254 (150-400) K/uL MPV 10.80 (7.40-12.00) fL Neut % (Auto) 70.1 (48.0-80.0) % Lymph % (Auto) 23.0 (16.0-40.0) % [place] % (Auto) 5.3 (0.0-15.0) % Eos % (Auto) 1.4 (0.0-7.0) % Baso % (Auto) 0.2 (0.0-1.5) % Neut # (Auto) 13.0 H (1.4-5.7) K/uL Lymph # (Auto) 4.3 H (0.6-2.4) K/uL [place] # (Auto) 1.0 H (0.0-0.8) K/uL Eos # (Auto) 0.3 (0.0-0.7) K/uL Baso # (Auto) 0.0 (0.0-0.1) K/uL Nucleated RBC % 0.0 /100WBC Nucleated RBCs # 0 K/uL Meds: Medications Generic Name Dose Route Start Last Admin Trade Name Freq PRN Reason Stop Dose Admin Lactated Ringer's 1,000 mls @ 999 mls/hr 05/29/20 07:36 05/29/20 07:48 Ringers, Lactated IV 05/29/20 08:36 999 mls/hr .BOLUS ONE Administration Discontinued Medications Generic Name Dose Route Start Last Admin Trade Name Freq PRN Reason Stop Dose Admin Diphenhydramine HCl 50 mg 05/29/20 07:37 05/29/20 07:48 Benadryl IVPUSH 05/29/20 07:38 50 mg ONETIME ONE Administration Ketorolac Tromethamine 15 mg 05/29/20 07:36 05/29/20 07:48 Toradol IVPUSH 05/29/20 07:37 15 mg ONETIME ONE Administration Metoclopramide HCl 10 mg 05/29/20 07:36 05/29/20 07:49 Reglan IVPUSH 05/29/20 07:37 10 mg ONETIME ONE Administration - Re-Assessments/Exams Free Text/Narrative Re-Assessment/Exam: 05/29/20 08:21 After IV fluids, Toradol, Reglan, Benadryl, her headache resolved down to 05/19 and she is currently stable for discharge. I performed a repeat exam and did not appreciate new abnormal findings. Patient exhibits normal vital signs and has a normal gait on road test. I advised the patient to return to the ER for reevaluation if symptoms worsened, including fever, worsening pain, or any other worrisome symptoms. I instructed the patient to follow up with her PCP within 2- 3 days and her neuro-separating machine operator in [place] as appointed. MEDICAL DECISION MAKING: I reviewed the patients past medical records, lab and radiographic findings. I discussed the case with the patient. My differential diagnosis included: Migraine headache. Despite her recent history of optic nerve ""swelling ", her headache was responsive to Toradol, Reglan, Benadryl, IV fluids. She states her headache today feels identical to her migraine headache. She had no focal deficits, her vision acuity was normal at 20/20, I do not suspect exacerbation of his optic nerve swelling today. She does have follow-up with neuro-ophthalmology. Her pain was completely resolved down to 05/19. I suspect migraine headache nature. I did perform a CT head which was unremarkable. I think she is stable for outpatient follow-up with her PCP and neuro-ophthalmology. Departure - Departure Time of Disposition: 08:33 Disposition: Home, Self-Care 01 Condition: Good Clinical Impression: Migraine - Discharge Information *PRESCRIPTION DRUG MONITORING PROGRAM REVIEWED*: Not Applicable *COPY OF PRESCRIPTION DRUG MONITORING REPORT IN PATIENT BOGDAN: Not Applicable Instructions: Recurrent Migraine Headache Referrals: Meka Ramírez PA [Primary Care Provider] - 3 Days Forms: ED Department Discharge Additional Instructions: The need for follow-up, as well as the timing and circumstances, are variable depending upon the specifics of your emergency department visit. If you don't have a primary care physician on staff, we will provide you with a referral. We always advise you to contact your personal physician following an emergency department visit to inform them of the circumstance of the visit and for follow-up with them and/or the need for any referrals to a consulting specialist. The emergency department will also refer you to a specialist when appropriate. This referral assures that you have the opportunity for follow-up care with a specialist. All of these measure are taken in an effort to provide you with optimal care, which includes your follow-up. Under all circumstances we always encourage you to contact your private physician who remains a resource for coordinating your care. When calling for follow-up care, please make the office aware that this follow-up is from your recent emergency room visit. If for any reason you are refused follow-up, please contact the [facility] Emergency Department at and asked to speak to the emergency department charge nurse. If you do not have a primary care doctor, please follow up with the clinics below within 3-5 days. [facility] [address] [place] [address] [facility] [address] [place] [id number] Sepsis Event Note (ED) - Evaluation Sepsis Screening Result: No Definite Risk - Focused Exam Vital Signs: Vital Signs Temp Pulse Resp BP Pulse Ox 05/29/20 07:24 97 F 58 L 18 133/61 96 - My Orders Last 24 Hours: My Active Orders 05/29/20 07:35 Visual Acuity [Vision Test] [RC] ASDIRECTED 05/29/20 07:36 Lactated Ringers [Ringers, Lactated] 1,000 ml IV .BOLUS 05/29/20 07:40 COMPREHENSIVE METABOLIC PN,CMP [CHEM] Stat ESR [SEDIMENTATION RATE AUTO] [HEME] Stat INR,PT,PROTHROMBIN TIME [COAG] Stat - Assessment/Plan Last 24 Hours: My Active Orders 05/29/20 07:35 Visual Acuity [Vision Test] [RC] ASDIRECTED 05/29/20 07:36 Lactated Ringers [Ringers, Lactated] 1,000 ml IV .BOLUS 05/29/20 07:40 COMPREHENSIVE METABOLIC PN,CMP [CHEM] Stat ESR [SEDIMENTATION RATE AUTO] [HEME] Stat INR,PT,PROTHROMBIN TIME [COAG] Stat
[2020-05-29 08:28] LABS: BLOOD UREA NITROGEN,BUN 17 mg/dL (7.0-18.0); CARBON DIOXIDE,CO2 25.4 mmol/L (21.0-32.0); CHLORIDE,CL 107 mmol/L (98-107); GLUCOSE RANDOM 99 mg/dL (74-106); POTASSIUM,K 3.7 mmol/L (3.5-5.1); SODIUM,NA 140 mmol/L (136-145)
== END 2020-05-29 08:52 | disposition home or self-care (01) ==
LOC: MW.ED 07:17
DX: G43.909 Migraine, unspecified, not intractable, without status migrainosus (principal); E66.9 Obesity, unspecified; Z68.41 Body mass index [BMI] 40.0-44.9, adult; F17.200 Nicotine dependence, unspecified, uncomplicated; Z88.5 Allergy status to narcotic agent
CPT/HCPCS: 36415; 70450; 80053; 85025; 85610; 85652; 96374; 96375; 99284; J1200; J1885; J2765; J7120

== ENCOUNTER 2020-12-06 08:35 | Day surgery (SDC) | payer MEDICAID ==
--- NOTE | 2020-12-06 15:50 | OR ---
SURGEON: Jonny Baker M.D. DATE OF PROCEDURE: 12/06/2020 OPERATION PERFORMED: Colonoscopy. PRIMARY SURGEON: Jonny aBker MD ANESTHESIA: MAC. ASA CLASSIFICATION: III. PREOPERATIVE DIAGNOSIS: Rectal bleeding. POSTOPERATIVE DIAGNOSIS: No evidence of neoplasia. DESCRIPTION OF PROCEDURE: The patient was taken to the endoscopy room, positioned on the endoscopy table in the left lateral decubitus position. Time-out was called for appropriate identification of the patient and procedure. Monitored anesthesia care was provided. The colonoscope was inserted into the rectum and advanced with minimal difficulty to the cecum. The cecum was identified by internal landmarks and external pressure. The colonoscope was retroflexed to visualize the ascending colon from below, then straightened, and slowly withdrawn. The cecum, ascending colon, hepatic flexure, transverse colon, splenic flexure, descending colon, sigmoid colon, and rectum were very well visualized. No tumors, polyps, diverticula, or angiodysplastic changes were noted anywhere in the lower gastrointestinal tract. Once the colonoscope was withdrawn to the rectum, it was retroflexed to visualize the anal orifice from above. Again, no tumors or polyps were seen and there were no acute hemorrhoidal changes. The colonoscope was then straightened, the rectum aspirated, and the colonoscope removed. The patient tolerated the procedure well and was taken to recovery room in stable condition. SUGEY / CHETNA /[id number]
[2020-12-09] MEDS ORDERED: Lactated Ringers 1,000 ML IV SCH ×2 (06:00→12:30)
[2020-12-09] MEDS ORDERED: cefOXitin 2 GM in Premix Bag 1 BAG IV ONE (06:00)
[2020-12-09] MEDS ORDERED: Albuterol 0.083% 2.5 MG/3 ML Neb Soln NEB PRN (07:11)
[2020-12-09] MEDS ORDERED: Ondansetron 4 MG/2 ML SDV IVPUSH PRN (07:11)
[2020-12-09] MEDS ORDERED: Metoclopramide 10 MG/2 ML SDV IVPUSH PRN (07:11)
[2020-12-09] MEDS ORDERED: Naloxone 0.4 MG/ML Syringe IVPUSH PRN (07:11)
[2020-12-09] MEDS ORDERED: fentaNYL 100 MCG/2 ML SDV IVPUSH PRN (07:11)
--- NOTE | 2020-12-09 07:15 | PCM.PREANE ---
Preanesthetic Assessment - Anesthesia/Transfusion/Family Hx Anesthesia History: Prior Anesthesia Without Reaction Transfusion History: No Prior Transfusion(s) Intubation History: Unknown - Review of Systems General: No Symptoms Pulmonary: No Symptoms Cardiovascular: No Symptoms Gastrointestinal: Abdominal Pain Neurological: No Symptoms Other: Reports: None - Physical Assessment NPO Status Date: 12/09/20 NPO Status Time: 00:00 Height: 5 ft 7 in Weight: 286 lb ASA Class: 3 Mental Status: Alert & Oriented x3 Airway Class: Mallampati = 2 Dentition: Reports: Normal Dentition, Broken Tooth/Teeth, Missing Tooth/Teeth Thyro-Mental Finger Breadths: 3 Mouth Opening Finger Breadths: 3 ROM/Head Extension: Full Lungs: Clear to Auscultation, Normal Respiratory Effort Cardiovascular: Regular Rate, Regular Rhythm - Allergies Allergies/Adverse Reactions: Allergies Allergy/AdvReac Type Severity Reaction Status Date / Time hydromorphone [From Dilaudid] Allergy headache/N& Verified 12/03/20 09:55 V morphine Allergy headache/N& Verified 12/03/20 09:55 V MSG Allergy Mild Headache Uncoded 12/03/20 09:55 - Blood Blood Available: No - Anesthesia Plan Pre-Op Medication Ordered: Other (Scopolamine) - Acknowledgements Anesthesia Type Planned: General Anesthesia Pt an Appropriate Candidate for the Planned Anesthesia: Yes Alternatives and Risks of Anesthesia Discussed w Pt/Guardian: Yes PreAnesthesia Questionnaire HEENT History: Reports: Other (See Below) Other HEENT History: Mid April 2020, 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 Thought to be caused by compression of the Optic nerve due to swelling. No cause was found for the swelling and vision has returned. 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 Musculoskeletal History: Reports: Back Pain, Chronic, Fracture, Neck Pain, Chronic, Osteoarthritis Other Musculoskeletal History: bone spurs on C5-C6-C7, hx of fx leg and ankle as a child Neurological History: Reports: Migraines Psychiatric History: Reports: Depression Endocrine/Metabolic History: Reports: Obesity/BMI 30+ Hematologic History: Reports: None Immunologic History: Reports: None Oncologic (Cancer) History: Reports: Cervix, Squamous Cell Carcinoma Dermatologic History: Reports: None - Infectious Disease History Infectious Disease History: Reports: Chicken Pox - Past Surgical History Head Surgeries/Procedures: Reports: None HEENT Surgical History: Reports: Tonsillectomy, Other (See Below) Other HEENT Surgeries/Procedures: facial repair from dog bite as a child Cardiovascular Surgical History: Reports: None Respiratory Surgical History: Reports: None Female Surgical History: Reports: Cervical Conization, Endometrial Ablation, Hysterectomy Endocrine Surgical History: Reports: None Neurological Surgical History: Reports: None Musculoskeletal Surgical History: Reports: None Oncologic Surgical History: Other Oncologic Surgeries/Procedures: Cervical Conization - SUBSTANCE USE Tobacco Use Status *Q: Current Every Day Tobacco User Tobacco Use Within Last Twelve Months: Cigarettes Recreational Drug Use History: No - HOME MEDS Home Medications: Home Meds . [No Known Home Meds] 12/02/20 [History] - CURRENT (IN HOUSE) MEDS Current Meds: Current Medications Lactated Ringer's (Ringers, Lactated) 1,000 mls @ 125 mls/hr IV ASDIRECTED ROHITH Discontinued Medications Cefoxitin Sodium 2 gm/ Premix 50 mls @ 100 mls/hr IV ONETIME ONE Stop: 12/09/20 06:29
[2020-12-09] MEDS ORDERED: fentaNYL 250 MCG/5 ML SDV ONE (08:02)
[2020-12-09] MEDS ORDERED: Midazolam 1 MG/ML 2 ML SDV ONE (08:02)
[2020-12-09] MEDS ORDERED: Propofol 200 MG/20 ML SDV ONE (08:02)
[2020-12-09] MEDS ORDERED: Succinylcholine/Sod PF 100 MG/5 ML SYRINGE IV ONE (08:02)
[2020-12-09] MEDS ORDERED: Ondansetron 4 MG/2 ML SDV ONE (08:02)
[2020-12-09] MEDS ORDERED: Rocuronium Bromide 50 MG/5 ML Syringe ONE (08:02)
[2020-12-09] MEDS ORDERED: Lidocaine 2% 5 ML SDV ONE (08:02)
[2020-12-09] MEDS ORDERED: Dexamethasone 4 MG/ML 5 ML MDV ONE (08:03)
[2020-12-09] MEDS ORDERED: cefOXitin 1 GM Vial ONE (08:22)
--- NOTE | 2020-12-09 12:07 | PCM.POSTAN ---
POST ANESTHESIA ASSESSMENT - MENTAL STATUS Mental Status: Alert, Oriented, Somnolent - VITAL SIGNS Vital Signs: Last Vital Signs Temp 97.7 F 12/09/20 12:01 Pulse 63 12/09/20 12:01 Resp 20 12/09/20 12:01 BP 117/64 12/09/20 12:01 Pulse Ox 93 L 12/09/20 12:01 - RESPIRATORY Respiratory Status: Respiratory Rate WNL, Airway Patent, O2 Saturation Stable - CARDIOVASCULAR CV Status: Pulse Rate WNL, Blood Pressure Stable - GASTROINTESTINAL GI Status: No Symptoms - POST OP HYDRATION Hydration Status: Adequate & Stable
--- NOTE | 2020-12-09 12:10 | PCM48HPAN ---
Post Anesthesia Note - EVALUATION WITHIN 48HRS OF ANESTHETIC Vital Signs in Normal Range: Yes Patient Participated in Evaluation: Yes Respiratory Function Stable: Yes Airway Patent: Yes Cardiovascular Function Stable: Yes Hydration Status Stable: Yes Pain Control Satisfactory: Yes Nausea and Vomiting Control Satisfactory: Yes Mental Status Recovered: Yes Vital Signs: Last Vital Signs Temp 97.7 F 12/09/20 12:01 Pulse 58 L 12/09/20 12:07 Resp 16 12/09/20 12:07 BP 120/75 12/09/20 12:07 Pulse Ox 93 L 12/09/20 12:07
--- NOTE | 2020-12-09 12:27 | PCM.OPNOTE ---
- General Post-Op/Procedure Note Date of Surgery/Procedure: 12/09/20 Operative Procedure(s): Laparoscopic cholecystectomy Pre Op Diagnosis: Symptomatic cholelithiasis Post-Op Diagnosis: Same Anesthesia Technique: General ET Tube (ASA III) Primary Surgeon: Jonny Baker Fluid Replacement, Intraop: 1,500 Output, Urine Amount: 175 EBL in mLs: 100 Condition: Good Free Text/Narrative:: Intake & Output 12/09/20 12/09/20 12/09/20 03:59 11:59 19:59 Output Total 175 Balance -175 DICTATION [id number] CPT CODE 86344
[2020-12-09] MEDS ORDERED: Acetaminophen/HYDROcodone 325-5 MG Tab PO PRN (12:36)
== END 2020-12-09 14:03 | disposition home or self-care (01) ==
LOC: MW.SDS 08:35
PROVIDERS: ATTEND Surgery
DX: K62.5 Hemorrhage of anus and rectum (principal); E55.9 Vitamin D deficiency, unspecified; F17.200 Nicotine dependence, unspecified, uncomplicated; K80.20 Calculus of gallbladder without cholecystitis without obstruction; E66.01 Morbid (severe) obesity due to excess calories; Z68.41 Body mass index [BMI] 40.0-44.9, adult; Z88.8 Allergy status to other drugs, medicaments and biological substances; Z88.5 Allergy status to narcotic agent; Z98.890 Other specified postprocedural states
CPT/HCPCS: 45378; J0131; J0330; J0694; J1100; J2250; J2405; J2704; J3010; J7030; J7120; 00790

== ENCOUNTER → 2020-12-09 | Day surgery (SDC) | payer MEDICAID ==
--- NOTE | 2020-12-06 07:38 | PCM.PREANE ---
Preanesthetic Assessment - Anesthesia/Transfusion/Family Hx Anesthesia History: Prior Anesthesia Without Reaction Transfusion History: No Prior Transfusion(s) Intubation History: Unknown - Review of Systems General: No Symptoms Pulmonary: No Symptoms Cardiovascular: No Symptoms Gastrointestinal: No Symptoms Neurological: No Symptoms Other: Reports: None - Physical Assessment NPO Status Date: 12/06/20 NPO Status Time: 00:00 Height: 5 ft 7 in Weight: 286 lb ASA Class: 3 Mental Status: Alert & Oriented x3 Airway Class: Mallampati = 3 Dentition: Reports: Normal Dentition Thyro-Mental Finger Breadths: 3 Mouth Opening Finger Breadths: 3 ROM/Head Extension: Full Lungs: Clear to Auscultation, Normal Respiratory Effort Cardiovascular: Regular Rate, Regular Rhythm - Allergies Allergies/Adverse Reactions: Allergies Allergy/AdvReac Type Severity Reaction Status Date / Time hydromorphone [From Dilaudid] Allergy headache/N& Verified 12/03/20 09:55 V morphine Allergy headache/N& Verified 12/03/20 09:55 V MSG Allergy Mild Headache Uncoded 12/03/20 09:55 - Acknowledgements Anesthesia Type Planned: General Anesthesia Pt an Appropriate Candidate for the Planned Anesthesia: Yes Alternatives and Risks of Anesthesia Discussed w Pt/Guardian: Yes Pt/Guardian Understands and Agrees with Anesthesia Plan: Yes PreAnesthesia Questionnaire HEENT History: Reports: Other (See Below) Other HEENT History: Mid April 2020, 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 Thought to be caused from compression of Optic nerve due to swelling. No cause was found for swelling and vision has returned. 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 Musculoskeletal History: Reports: Back Pain, Chronic, Fracture, Neck Pain, Chronic, Osteoarthritis Other Musculoskeletal History: bone spurs on C5-C6-C7, hx of fx leg and ankle Neurological History: Reports: Migraines Psychiatric History: Reports: Depression Endocrine/Metabolic History: Reports: Obesity/BMI 30+ Hematologic History: Reports: None Immunologic History: Reports: None Oncologic (Cancer) History: Reports: Cervix, Squamous Cell Carcinoma Dermatologic History: Reports: None - Infectious Disease History Infectious Disease History: Reports: Chicken Pox - Past Surgical History Head Surgeries/Procedures: Reports: None HEENT Surgical History: Reports: Tonsillectomy, Other (See Below) Other HEENT Surgeries/Procedures: facial repair from dog bite as a child Cardiovascular Surgical History: Reports: None Respiratory Surgical History: Reports: None Female Surgical History: Reports: Cervical Conization, Endometrial Ablation, Hysterectomy Endocrine Surgical History: Reports: None Neurological Surgical History: Reports: None Musculoskeletal Surgical History: Reports: None Oncologic Surgical History: Other Oncologic Surgeries/Procedures: Cervical Conization - SUBSTANCE USE Tobacco Use Status *Q: Current Every Day Tobacco User Tobacco Use Within Last Twelve Months: Cigarettes Recreational Drug Use History: No - HOME MEDS Home Medications: Home Meds . [No Known Home Meds] 12/02/20 [History] - CURRENT (IN HOUSE) MEDS Current Meds: Current Medications Lactated Ringer's (Ringers, Lactated) 1,000 mls @ 125 mls/hr IV ASDIRECTED ROHITH
--- NOTE | 2020-12-06 10:47 | PCM.POSTAN ---
POST ANESTHESIA ASSESSMENT - MENTAL STATUS Mental Status: Alert, Oriented - VITAL SIGNS Vital Signs: Last Vital Signs Temp 96.8 F L 12/06/20 08:53 Pulse 62 12/06/20 08:53 Resp 16 12/06/20 08:53 BP 141/81 H 12/06/20 08:53 Pulse Ox 98 12/06/20 08:53 - RESPIRATORY Respiratory Status: Respiratory Rate WNL, Airway Patent, O2 Saturation Stable - CARDIOVASCULAR CV Status: Pulse Rate WNL, Blood Pressure Stable - GASTROINTESTINAL GI Status: No Symptoms - POST OP HYDRATION Hydration Status: Adequate & Stable
--- NOTE | 2020-12-06 10:48 | PCM48HPAN ---
Post Anesthesia Note - EVALUATION WITHIN 48HRS OF ANESTHETIC Vital Signs in Normal Range: Yes Patient Participated in Evaluation: Yes Respiratory Function Stable: Yes Airway Patent: Yes Cardiovascular Function Stable: Yes Hydration Status Stable: Yes Pain Control Satisfactory: Yes Nausea and Vomiting Control Satisfactory: Yes Mental Status Recovered: Yes Vital Signs: Last Vital Signs Temp 96.8 F L 12/06/20 08:53 Pulse 62 12/06/20 08:53 Resp 16 12/06/20 08:53 BP 141/81 H 12/06/20 08:53 Pulse Ox 98 12/06/20 08:53
--- NOTE | 2020-12-06 10:52 | PCM.OPNOTE ---
- General Post-Op/Procedure Note Date of Surgery/Procedure: 12/06/20 Operative Procedure(s): Colonoscopy Pre Op Diagnosis: Rectal bleeding Post-Op Diagnosis: No evidence of neoplasia Anesthesia Technique: MAC (ASA III) Primary Surgeon: Jonny Baker Condition: Good Free Text/Narrative:: DICTATION 089615 CPT CODE 82800
[~2020-12-09] MED LIST changes: +Bupivacaine 0.5% 30 ML SDV ONE; +Indocyanine Green 25 MG SDV ONE; +Ketorolac 30 MG/ML SDV ONE; +Propofol 200 MG/20 ML SDV ONE; +Rocuronium Bromide 50 MG/5 ML Syringe ONE; +Scopolamine 1.5 MG Transdermal Patch ONE; -Sodium Chloride 0.9% 10 ML Syringe FLUSH PRN; -Sodium Chloride 0.9% 2.5 ML Syringe FLUSH PRN; +Sodium Chloride 0.9% 20 ML ONE; +Sugammadex Sodium 200 MG/2 ML VIAL ONE; +ceFAZolin 1 GM Vial ONE; -ceFAZolin 2 GM in Premix Bag 1 BAG IV ONE
--- NOTE | 2020-12-09 16:10 | OR ---
SURGEON: Jonny Baker M.D. DATE OF PROCEDURE: 12/09/2020 OPERATION PERFORMED: Laparoscopic cholecystectomy. PRIMARY SURGEON: Jonny Baker M.D. ANESTHESIA: General endotracheal. ASA CLASSIFICATION: III. PREOPERATIVE DIAGNOSIS: Symptomatic cholelithiasis. POSTOPERATIVE DIAGNOSIS: Symptomatic cholelithiasis. ESTIMATED BLOOD LOSS: 100 mL. INTRAOPERATIVE FLUID REPLACEMENT: 1500 mL of crystalloid. INTRAOPERATIVE URINARY OUTPUT: 175 mL. DESCRIPTION OF PROCEDURE: The patient was taken to the operating room and placed on the operating table in the supine position. Time-out was called for appropriate identification of the patient and procedure. Sequential compression boots were placed. Following satisfactory attainment of general endotracheal anesthesia, a Hardin catheter was placed in the patient's urinary bladder. The abdomen was prepped with DuraPrep solution and sterile drapes were applied. The skin below the umbilicus was infiltrated with 0.5% Marcaine solution. Skin incision was made and deepened through the subcutaneous tissue obtaining hemostasis with the use of electrocautery. Veress needle was introduced into the peritoneal cavity. Saline drop test was positive. Carbon dioxide pneumoperitoneum was established with the release set at 13 cm of water. Once a satisfactory pneumoperitoneum was established, 5 mm camera and port were placed through the infraumbilical incision. Under camera vision, 12 mm subxiphoid, 5 mm midclavicular, and 5 mm anterior axillary ports were placed. Each incision had preemptively been infiltrated with 0.5% Marcaine solution. The patient was now positioned with her feet down and rolled to the left. The gallbladder was grasped and the cholecystohepatic triangle was dissected free obtaining good critical view. The cystic duct and cystic artery were serially identified, hemoclipped, and divided with the laparoscopic Metzenbaum scissor. The gallbladder was then dissected away from its bed using electrocautery. A very tiny amount of bile was spilled as the gallbladder was amputated. This was promptly placed in an EndoCatch. The bed of the gallbladder was then inspected for hemostasis and a little oozing was noted. The gallbladder bed and right upper quadrant were irrigated with sterile saline solution and all fluid was aspirated. Surgicel was placed into the bed of the gallbladder. The right hemidiaphragm was then irrigated with 200 mL of saline containing 20 mL of 0.5% plain Marcaine solution. That fluid was left in place. The EndoCatch containing gallbladder was now attempted to be delivered through the subxiphoid incision. It was necessary to extend that incision significantly as the stones that were present were rather large and would not come through. There was some bleeding from the muscle bed that required further exploration and cauterization. Once the EndoCatch containing gallbladder was removed, wounds were inspected for hemostasis, no other bleeding was noted. The posterior rectus sheath was then closed with running 0 Vicryl. The anterior rectus sheath was then closed with interrupted 0 Ethibond sutures. Wounds were inspected for hemostasis, no other bleeding was noted. The subxiphoid and infraumbilical incisions were closed in 2 layers approximating the subcutaneous tissue with 3-0 Vicryl and the skin with subcuticular 4-0 Monocryl. The anterior axillary and midclavicular incisions were closed with subcuticular 4-0 Monocryl. All incisions were Steri-Stripped and dressed with sterile Tegaderm pads. Sponge, needle, and instrument counts were all correct. The Hardin catheter was removed prior to emergence from anesthesia. Following emergence from anesthesia and extubation, the patient was taken to recovery room in stable condition. SUGEY / CHETNA /[id number]
== END | disposition home or self-care (01) ==
LOC: MW.SDS 12-06 08:35
PROVIDERS: ATTEND Surgery
DX: K80.12 Calculus of gallbladder with acute and chronic cholecystitis without obstruction (principal); E55.9 Vitamin D deficiency, unspecified; F17.200 Nicotine dependence, unspecified, uncomplicated; E66.01 Morbid (severe) obesity due to excess calories; Z68.41 Body mass index [BMI] 40.0-44.9, adult; Z88.8 Allergy status to other drugs, medicaments and biological substances; Z88.5 Allergy status to narcotic agent; Z98.890 Other specified postprocedural states
CPT/HCPCS: 47562; 88304; J1885; J2704; J3490; J7120; 00811; J0690

== ENCOUNTER 2022-05-22 09:55 | Day surgery (SDC) | payer MEDICAID ==
[~2022-05-22 09:55] MED LIST changes: +Albuterol 0.083% 2.5 MG/3 ML Neb Soln NEB PRN; -Bupivacaine 0.5% 30 ML SDV ONE; +HYDROmorphone 1 MG/ML Syringe IVPUSH PRN; -Indocyanine Green 25 MG SDV ONE; -Ketorolac 30 MG/ML SDV ONE; +Metoclopramide 10 MG/2 ML SDV IVPUSH PRN; +Morphine 2 MG/ML SYRINGE IVPUSH PRN; +Naloxone 0.4 MG/ML SDV IVPUSH PRN; +Ondansetron 4 MG/2 ML SDV IVPUSH PRN; -Propofol 200 MG/20 ML SDV ONE; -Rocuronium Bromide 50 MG/5 ML Syringe ONE; -Scopolamine 1.5 MG Transdermal Patch ONE; -Sodium Chloride 0.9% 20 ML ONE; -Sugammadex Sodium 200 MG/2 ML VIAL ONE; -ceFAZolin 1 GM Vial ONE; +fentaNYL 50 MCG/ML SDV IVPUSH PRN
[2022-05-22] MEDS ORDERED: Propofol 200 MG/20 ML SDV ONE (10:39)
[2022-05-22] MEDS ORDERED: fentaNYL 100 MCG/2 ML SDV ONE ×5 (10:44→12:08)
[2022-05-22] MEDS ORDERED: Bupivacaine 0.5% 30 ML SDV ONE (10:51)
[2022-05-22] MEDS ORDERED: ceFAZolin 2 GM in Premix Bag 1 BAG IV ONE (11:15)
[2022-05-22] MEDS ORDERED: Ondansetron 4 MG/2 ML SDV ONE (12:07)
== END 2022-05-22 14:15 | disposition home or self-care (01) ==
LOC: MW.SDS 09:55
PROVIDERS: ATTEND Podiatrist Foot & Ankle Surgery
DX: M89.9 Disorder of bone, unspecified (principal); F17.210 Nicotine dependence, cigarettes, uncomplicated; F41.0 Panic disorder [episodic paroxysmal anxiety]; F32.A Depression, unspecified; E66.01 Morbid (severe) obesity due to excess calories; E55.9 Vitamin D deficiency, unspecified; M79.10 Myalgia, unspecified site; H46.9 Unspecified optic neuritis; Z88.6 Allergy status to analgesic agent; Z90.49 Acquired absence of other specified parts of digestive tract; Z90.710 Acquired absence of both cervix and uterus; Z98.890 Other specified postprocedural states; Z88.8 Allergy status to other drugs, medicaments and biological substances; Z79.899 Other long term (current) drug therapy; Z68.41 Body mass index [BMI] 40.0-44.9, adult
CPT/HCPCS: 28039; 73620; J0131; J2405; J2704; J3010; J3490

== ENCOUNTER 2023-06-08 17:05 | Emergency (ER) | payer MEDICAID ==
[2023-06-08] MEDS ORDERED: Sodium Chloride 0.9% 2.5 ML Syringe FLUSH PRN (18:01)
[2023-06-08] MEDS ORDERED: Sodium Chloride 0.9% 10 ML Syringe FLUSH PRN (18:01)
[2023-06-08 18:25] LABS: BASOPHILS ABSOLUTE AUTO 0.06 K/uL (0.00-0.20); BASOPHILS PERCENT AUTO 0.5 % (0.0-1.0); EOSINOPHILS ABSOLUTE AUTO 0.15 K/uL (0.00-0.45); EOSINOPHILS PERCENT AUTO 1.2 % (0.0-6.0); HEMATOCRIT 43.9 % (37.0-47.0); HEMOGLOBIN 14.7 g/dL (12.0-16.0); IMMATURE GRAN ABSOLUTE AUTO 0.03 K/uL (0.00-0.05); IMMATURE GRAN PERCENT AUTO 0.2 % (0.0-0.4); LYMPHOCYTES ABSOLUTE AUTO 3.78 K/uL (1.00-4.80); LYMPHOCYTES PERCENT AUTO 30.7 % (24.0-44.0); MEAN CORPUSCULAR HEMOGLOBIN 30.2 pg (28.0-32.0); MEAN CORPUSCULAR HGB CONC 33.5 g/dL (32.0-36.0); MEAN CORPUSCULAR VOLUME 90.3 fL (83.0-99.0); MEAN PLATELET VOLUME 10.7 fL (9.4-12.3); MONOCYTES ABSOLUTE AUTO 0.72 K/uL (0.00-0.80); MONOCYTES PERCENT AUTO 5.8 % (0.0-8.0); NEUTROPHILS ABSOLUTE AUTO 7.58 K/uL (1.80-7.70); NEUTROPHILS PERCENT AUTO 61.6 % (41.0-71.0); PLATELET COUNT,PLT 276 K/uL (150-400); RED BLOOD CELL COUNT 4.86 M/uL (4.10-5.30); WHITE BLOOD CELL COUNT,WBC 12.32 K/uL (3.9-11.3)
[2023-06-08 18:47] LABS: INR 0.98 (0.86-1.11); PTT,PARTIAL THROMBOPLSTIN TIME 29.1 SEC (23.9-30.7)
[2023-06-08 18:56] LABS: A/G RATIO 1.1 (0.9-1.6); ALBUMIN 3.5 g/dL (3.4-5.0); BILIRUBIN TOTAL 0.2 mg/dL (0.2-1.0); CALCIUM 8.6 mg/dL (8.5-10.1); CARBON DIOXIDE,CO2 25.1 mmol/L (21.0-32.0); CREATININE 0.8 mg/dL (0.6-1.0); EST CRCL DRUG DOSING (CG) 98.67 mL/min; POTASSIUM,K 3.8 mmol/L (3.5-5.1); PROTEIN TOTAL,TP 6.7 g/dL (6.4-8.2)
== END 2023-06-08 18:50 | disposition home or self-care (01) ==
LOC: MW.ED 17:05
DX: H53.9 Unspecified visual disturbance (principal); E66.9 Obesity, unspecified; Z90.710 Acquired absence of both cervix and uterus; Z79.899 Other long term (current) drug therapy; Z88.1 Allergy status to other antibiotic agents; Z88.5 Allergy status to narcotic agent; Z88.8 Allergy status to other drugs, medicaments and biological substances; Z91.048 Other nonmedicinal substance allergy status; Z68.39 Body mass index [BMI] 39.0-39.9, adult
CPT/HCPCS: 36415; 70543; 80053; 85025; 85610; 85730; 99284; J3490; 99282

== ENCOUNTER 2024-01-21 20:52 | Emergency (ER) | payer MEDICAID ==
[2024-01-21] MEDS: Clindamycin HCl 150 MG Cap PO STA (21:29)
[2024-01-21] MEDS: Benzocaine 20% Topical Spray UD MUCMEM ONE (21:29)
[2024-01-21] MEDS: Lidocaine 2% Viscous Solution 15 ML UD PO ONE (21:29)
== END 2024-01-21 21:33 | disposition home or self-care (01) ==
LOC: MW.ED 20:52
DX: K04.7 Periapical abscess without sinus (principal); F17.210 Nicotine dependence, cigarettes, uncomplicated; E66.9 Obesity, unspecified; Z75.8 Other problems related to medical facilities and other health care; Z79.899 Other long term (current) drug therapy; Z88.5 Allergy status to narcotic agent; Z88.8 Allergy status to other drugs, medicaments and biological substances; Z91.048 Other nonmedicinal substance allergy status
CPT/HCPCS: 99283; A9270